=== PATIENT | female | born 1985 | race Hispanic/Latino ===

== ENCOUNTER → 2017-05-05 | Outpatient (CLI) | payer OTHER ==
--- NOTE | 2017-05-05 16:08 | Diagnostic Imaging Report ---
#[id number] - USBRELIMLT ULTRASOUND OF THE LEFT BREAST : 05/05/2017 Comparison is made to exam dated: 05/05/2017 mammogram - [facility]. Color flow and real-time ultrasound were performed on the left breast in the area of interest where the patient has a palpable abnormality. At the 5 o'clock position 4 cm from the nipple is a palpable hypoechoic mass measuring 1.2 x 0.5 x 1.5 cm. This is well encapulated and is "wider than tall" and demonstrates benign characteristics. 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 IMPRESSION: PROBABLY BENIGN - FOLLOW-UP RECOMMENDED Palpable abnormality most likey represents a fibroadenoma. A follow-up ultrasound in 6 months is recommended to demonstrate stability. The patient was notified of these findings and the need for followup. Walt Segura Jr., D.O. cw/:05/05/2017 14:59:23 Fur Remodeler: CHEN HATHAWAY, [facility] letter sent: Followup Recommended Ultrasound BI-RADS: 3 Probably benign
--- NOTE | 2017-05-05 16:08 | Diagnostic Imaging Report ---
#[id number] - MGDXBIL #BILATERAL FIRST EVER DIGITAL DIAGNOSTIC MAMMOGRAM WITH CAD: 05/05/2017 No prior exams were available for comparison. Current study contains 6 films. The tissue of both breasts is extremely dense, which lowers the sensitivity of mammography. Current study was also evaluated with a Computer Aided Detection (CAD) system. There is a palpable mass marker in the left breast at 6 o'clock anterior depth. No associated mass is seen. Scattered benign appearing calcifications in both breasts are noted. No other significant masses or other findings are seen in either breast. IMPRESSION: INCOMPLETE: NEEDS ADDITIONAL IMAGING EVALUATION The palpable lesion in the left breast is indeterminate. An ultrasound is recommended and will be performed today. Follow-up with ACR/ACS guidelines. Walt Segura Jr., D.O. cw/:05/05/2017 14:53:09 Bracelet Maker Novelty: Rajani SEPULVEDA)(M), [facility] letter sent: Additional Imaging Needed Mammogram BI-RADS: 0 Indeterminate
== END ==
LOC: MAMMO 08:05
PROVIDERS: ATTEND General Practice
DX: N63.20 Unspecified lump in the left breast, unspecified quadrant (principal)
CPT/HCPCS: 77066

== ENCOUNTER → 2017-12-27 | Outpatient (CLI) | payer OTHER ==
--- NOTE | 2017-12-28 08:47 | Diagnostic Imaging Report ---
#[id number] - USBRELIMLT ULTRASOUND OF THE LEFT BREAST : 12/27/2017 Comparison is made to exams dated: 05/05/2017 ultrasound and 05/05/2017 mammogram - [facility]. Color flow and real-time focused ultrasound were performed on the left breast with scanning over the palpable abnormality in the left breast. -At the 5 o'clock position the palpable hypoechoic mass now measures 1.1 x 0.6 x 1.7 cm (previously measured 1.2 x 0.5 x 1.5 cm). It is well encapsulated and the differential remains the same. IMPRESSION: PROBABLY BENIGN - FOLLOW-UP RECOMMENDED There is minimal growth in this mass and this was discussed with the patient. She is OK following this lesion. A followup U/S in 6 months is recommended to maintain stability. Walt Segura Jr., D.O. cw/:12/27/2017 17:20:18 Screen Operator: Mazin Sawant [facility], [facility] letter sent: Followup Recommended Ultrasound BI-RADS: 3 Probably benign
== END ==
LOC: US 15:37
PROVIDERS: ATTEND General Practice
DX: N63.20 Unspecified lump in the left breast, unspecified quadrant (principal)